=== PATIENT | male | born 1955 | race African-American/Black ===

== ENCOUNTER 2020-03-28 12:43 | Outpatient (CLI) | payer OTHER | END 2020-03-28 20:02 | disposition home or self-care (01) | LOC: LAB 12:43 | DX: R05 Cough (principal); Z20.828 Contact with and (suspected) exposure to other viral communicable diseases | CPT/HCPCS: 87635; G2023; U00003 ==

== ENCOUNTER 2020-03-31 12:33 | Outpatient (CLI) | payer OTHER | END 2020-03-31 22:39 | disposition home or self-care (01) | LOC: RAD 12:33 | DX: R05 Cough (principal); Z20.828 Contact with and (suspected) exposure to other viral communicable diseases; I10 Essential (primary) hypertension ==